=== PATIENT | male | born 1955 | race Caucasian/White ===

== ENCOUNTER 2016-10-01 11:02 | Emergency (ER) | payer BC ==
[~2016-10-01] VITALS: Ht 177.8 cm; Wt 92.3 kg
[~2016-10-01 11:02] MED LIST: AUGM875T28 PO; CLEO150C PO; MULTCAP PO; SIMV10TA2 PO
[2016-10-01] MEDS ORDERED: ATOR80TA59 (11:25)
[2016-10-01] MEDS ORDERED: LISI10TA4 (11:25)
[2016-10-01] MEDS ORDERED: KETOROLAC 30 MG/ML VIAL (J1885) IM ONE (12:00)
--- NOTE | 2016-10-01 12:45 | REP ---
Lumbar spine five views: There are no comparisons. Vertebral body heights, interspacing alignment are normal. There are small osteophytes at multiple levels compatible with mild multilevel degenerative disc disease without disc space narrowing. A few end plate Schmorl's nodes are incidentally noted. There is no spondylolysis or spondylolisthesis. The facet articulations, pedicles and sacroiliac articulations are unremarkable. Impression: Mild multilevel degenerative disc disease. Otherwise, negative lumbar spine. Signed by Robert Shi MD 10/01/2016 12:37 P
[2016-10-01] MEDS ORDERED: PRED20TA PO (13:51)
[2016-10-01] MEDS ORDERED: CYCL10TA PO (13:51)
[2016-10-01] MEDS ORDERED: ULTR50TA8 PO (13:51)
[2016-10-01] MEDS ORDERED: PERCOCET 5MG/325MG TAB PO ONE (14:00)
[2016-10-01 14:54] VITALS: BP 142/71
== END 2016-10-01 15:07 | disposition home or self-care (01) ==
LOC: M ED 11:02
DX: S39.012A Strain of muscle, fascia and tendon of lower back, initial encounter (principal); M51.37 Other intervertebral disc degeneration, lumbosacral region; X58.XXXA Exposure to other specified factors, initial encounter; Y92.9 Unspecified place or not applicable; Y93.9 Activity, unspecified; Y99.9 Unspecified external cause status; I10 Essential (primary) hypertension; F17.200 Nicotine dependence, unspecified, uncomplicated; M51.36 Other intervertebral disc degeneration, lumbar region; Z79.899 Other long term (current) drug therapy
CPT/HCPCS: 72110; 96374; 96375; 99282; J1885; J3360

== ENCOUNTER → 2016-12-14 | Outpatient (CLI) | payer BC ==
[~2016-12-14] MED LIST changes: +ATOR80TA59; +CYCL10TA PO; +LISI10TA4; +PRED20TA PO; +ULTR50TA8 PO
--- NOTE | 2016-12-14 10:19 | REP ---
Noncontrast low-dose lung cancer screening chest CT. History: Nicotine dependence. Comparison chest CT study August 29, 2014. CT findings: There is a calcified granuloma in the right lower lobe peripherally on image 54 of 90 of today's exam. This is unchanged from comparison studies. There is another calcified granuloma in the right lung apex on image number 22. This is also unchanged. No other pulmonary nodular opacity is seen. The study is otherwise unremarkable. Impression: Negative low-dose lung cancer screening chest CT. Old granulomatous calcifications. Signed by Damián El MD 12/14/2016 05:26 P
== END ==
LOC: M RAD 08:13
PROVIDERS: ATTEND Family Medicine
DX: F17.210 Nicotine dependence, cigarettes, uncomplicated (principal)

== ENCOUNTER 2017-08-11 10:28 | Day surgery (SDC) | payer BC ==
[2017-08-11] MEDS: NS 1,000 ML IV (11:02)
[2017-08-11] MEDS ORDERED: PROPOFOL 200 MG/20 ML VIAL As Ordered ×2 (11:38→12:51)
[2017-08-11] MEDS ORDERED: LIDOCAINE 2% INJ 100 MG/5 ML SDV (FOR ANES.) As Ordered (11:38)
== END 2017-08-11 13:42 | disposition home or self-care (01) ==
LOC: M OPP 10:28
DX: Z12.11 Encounter for screening for malignant neoplasm of colon (principal); Z86.010 Personal history of colon polyps; D12.5 Benign neoplasm of sigmoid colon; D12.0 Benign neoplasm of cecum; D12.4 Benign neoplasm of descending colon; D12.7 Benign neoplasm of rectosigmoid junction; K63.89 Other specified diseases of intestine; K21.9 Gastro-esophageal reflux disease without esophagitis; K31.89 Other diseases of stomach and duodenum; K44.9 Diaphragmatic hernia without obstruction or gangrene; I10 Essential (primary) hypertension; E78.5 Hyperlipidemia, unspecified; Z87.442 Personal history of urinary calculi; F17.210 Nicotine dependence, cigarettes, uncomplicated; Z79.899 Other long term (current) drug therapy
CPT/HCPCS: 45385

== ENCOUNTER → 2018-09-11 | Outpatient (CLI) | payer BC ==
[~2018-09-11] MED LIST changes: +ATOR40TA75 PO; -LISI10TA4; +LISI10TA4 PO
[2018-09-11 13:08] LABS: BASO # 0.1 10^3/uL (0.0-0.2); BASO % 0.3 % (0.0-1.0); EOS # 0.2 10^3/uL (0.0-0.50); EOS % 1.2 % (0.0-3.0); HEMATOCRIT 48.1 % (42.0-52.0); HEMOGLOBIN 15.7 g/dl (13.5-17.5); LYMPH # 1.8 10^3/uL (1.5-4.5); LYMPH % 10.1 % (24.0-44.0); MEAN CORPUSCULAR HGB CONC 32.6 g/dl (32.0-36.5); MEAN CORPUSCULAR VOLUME 95.1 fl (80.0-96.0); MONO # 1.1 10^3/uL (0.0-0.8); MONO % 6.4 % (0.0-5.0); NEUTROPHILS # 14.2 10^3/uL (1.8-7.7); NEUTROPHILS % 81.5 % (36.0-66.0); PLATELET COUNT, AUTOMATED 206 10^3/uL (150-450); RED BLOOD COUNT 5.06 10^6/uL (4.30-6.10); WHITE BLOOD COUNT 17.4 10^3/uL (4.0-10.0)
== END ==
LOC: M WUC 10:32
PROVIDERS: ATTEND Physician Assistant
DX: J03.90 Acute tonsillitis, unspecified (principal)

== ENCOUNTER 2019-11-19 10:54 | Emergency (ER) | payer BC, MEDICARE ==
[~2019-11-19] VITALS: Ht 177.8 cm; Wt 93.2 kg
[~2019-11-19 10:54] MED LIST changes: +CYCL-707 PO; -CYCL10TA PO; -SIMV10TA2 PO; +SIMV10TA21 PO
[2019-11-19] MEDS ORDERED: tylenol (11:01)
[2019-11-19] MEDS ORDERED: advil (11:01)
[2019-11-19] MEDS ORDERED: methylPREDNISolone 125MG 2ML VIAL IM ONE (12:15)
[2019-11-19] MEDS ORDERED: LIDOCAINE 5% (LIDODERM) PATCH TD ONE (12:15)
[2019-11-19] MEDS ORDERED: CYCLOBENZAPRINE 10MG TABLET PO ONE (12:15)
[2019-11-19] MEDS ORDERED: CYCL-707 PO (13:09)
[2019-11-19] MEDS ORDERED: LIDO5DIS41 TOP (13:10)
[2019-11-19 13:16] VITALS: BP 159/79
[2019-11-19] MEDS ORDERED: **NOTE PATIENT COMMENT** MISC XX SCH (21:00)
== END 2019-11-19 13:25 | disposition home or self-care (01) ==
LOC: M ED 10:54
DX: G89.29 Other chronic pain (principal); M54.5 Low back pain; I10 Essential (primary) hypertension; F17.210 Nicotine dependence, cigarettes, uncomplicated; Z79.899 Other long term (current) drug therapy
CPT/HCPCS: 96372; 99283; J2930

== ENCOUNTER → 2020-07-31 | Outpatient (CLI) | payer MEDICARE ==
[~2020-07-31] MED LIST changes: +LIDO5DIS41 TOP; +LISI10TA22 PO; -LISI10TA4 PO; +advil; +tylenol
--- NOTE | 2020-07-31 08:40 | REP ---
INDICATION: F17.210 NICOTINE DEPEND COMPARISON: 12/14/2016 TECHNIQUE: Axial noncontrast images from the thoracic inlet to the upper abdomen using low-dose lung screening technique (LDCT). FINDINGS: Lung mares are well aerated and clear. Few small calcified nodules up to 2 mm are again noted and suggest chronic granulomatous disease. No acute consolidation, significant nodule or mass. No effusion. No pneumothorax. Tracheobronchial tree is patent. IMPRESSION: Lung-RADS category 2. Management recommendations include annual low-dose CT surveillance. <Electronically signed by Ian Kwan > 07/31/20 [id number]
== END ==
LOC: M RAD 08:19
PROVIDERS: ATTEND Family Medicine
DX: Z12.2 Encounter for screening for malignant neoplasm of respiratory organs (principal); F17.210 Nicotine dependence, cigarettes, uncomplicated

== ENCOUNTER → 2020-09-11 | Outpatient (REF) | payer MEDICARE | LOC: M LAB REF 12:01 | PROVIDERS: ATTEND Family Medicine | DX: E83.52 Hypercalcemia (principal); R74.8 Abnormal levels of other serum enzymes ==

== ENCOUNTER → 2021-11-30 | Outpatient (CLI) | payer MEDICARE | LOC: M RAD 07:23 | PROVIDERS: ATTEND Family Medicine | DX: Z13.6 Encounter for screening for cardiovascular disorders (principal); F17.200 Nicotine dependence, unspecified, uncomplicated ==

== ENCOUNTER → 2022-03-15 | Outpatient (CLI) | payer MEDICARE | LOC: M RAD 13:48 | PROVIDERS: ATTEND Family Medicine | DX: F17.210 Nicotine dependence, cigarettes, uncomplicated (principal) ==

== ENCOUNTER → 2022-11-03 | Outpatient (REF) | payer MEDICARE ==
[2022-11-03 10:26] LABS: IONIZED CALCIUM 5.7 MG/DL (4.5-5.3)
[2022-11-03 11:19] LABS: PTH INTACT 141.2 PG/ML (18.5-88.0)
== END ==
LOC: M LAB REF 10:15
PROVIDERS: ATTEND Family Medicine
DX: E83.52 Hypercalcemia (principal)

== ENCOUNTER → 2023-06-20 | Outpatient (CLI) | payer MEDICARE | LOC: M RAD 10:18 | PROVIDERS: ATTEND Family Medicine | DX: Z12.2 Encounter for screening for malignant neoplasm of respiratory organs (principal); F17.210 Nicotine dependence, cigarettes, uncomplicated ==

== ENCOUNTER 2023-11-10 06:40 | Day surgery (SDC) | payer MEDICARE ==
[~2023-11-10] VITALS: Ht 177.8 cm; Wt 87.3 kg
[~2023-11-10 06:40] MED LIST changes: +ASPI81TA26 PO; +OMEP1CAP73 PO
[2023-11-10] MEDS ORDERED: SIMETHICONE 40MG/0.6ML DROPS 30ML As Ordered ONE (06:46)
[2023-11-10] MEDS ORDERED: fentaNYL 100 MCG/2 ML INJECTION As Ordered ONE (06:58)
[2023-11-10] MEDS: NS 1,000 ML IV ONE (06:58)
[2023-11-10] MEDS ORDERED: propofoL 200 MG/20 ML VIAL As Ordered ONE (06:59)
[2023-11-10] MEDS ORDERED: LIDOCAINE 2% MDV 20ML VIAL As Ordered ONE (07:02)
[2023-11-10] MEDS ORDERED: propofoL 500 MG/50 ML VIAL As Ordered ONE (07:31)
[2023-11-10 08:07] VITALS: TEMP 97.3
[2023-11-10 08:46] VITALS: BP 163/83; O2SAT 100
== END 2023-11-10 08:50 | disposition home or self-care (01) ==
LOC: M OPP 06:40
PROVIDERS: ATTEND Surgery
DX: Z86.010 Personal history of colon polyps (principal); D12.6 Benign neoplasm of colon, unspecified; K57.30 Diverticulosis of large intestine without perforation or abscess without bleeding; I10 Essential (primary) hypertension; E78.00 Pure hypercholesterolemia, unspecified; R12 Heartburn; F17.210 Nicotine dependence, cigarettes, uncomplicated; Z79.82 Long term (current) use of aspirin; Z79.899 Other long term (current) drug therapy
CPT/HCPCS: 45385; 88305; J3010

== ENCOUNTER → 2024-02-17 | Outpatient (REF) | payer MEDICARE | LOC: M LAB REF 16:34 | PROVIDERS: ATTEND Family Medicine | DX: E83.52 Hypercalcemia (principal) ==

== ENCOUNTER → 2024-06-11 | Outpatient (CLI) | payer MEDICARE | LOC: M CARPUL 10:49 | PROVIDERS: ATTEND Family Medicine | DX: I71.20 Thoracic aortic aneurysm, without rupture, unspecified (principal) ==

== ENCOUNTER → 2024-06-25 | Outpatient (REF) | payer MEDICARE | LOC: M LAB REF 12:15 | PROVIDERS: ATTEND Family Medicine | DX: E83.52 Hypercalcemia (principal) ==

== ENCOUNTER → 2024-10-05 | Outpatient (CLI) | payer MEDICARE ==
[~2024-10-05] MED LIST changes: +LIDO1ADH93 TOP; -LIDO5DIS41 TOP
== END ==
LOC: M RAD 06:53
PROVIDERS: ATTEND Family Medicine
DX: Z12.2 Encounter for screening for malignant neoplasm of respiratory organs (principal); F17.210 Nicotine dependence, cigarettes, uncomplicated; J84.10 Pulmonary fibrosis, unspecified; I25.10 Atherosclerotic heart disease of native coronary artery without angina pectoris; N28.1 Cyst of kidney, acquired; N20.0 Calculus of kidney

== ENCOUNTER → 2024-12-25 | Outpatient (REF) | payer MEDICARE | LOC: M LAB REF 12:55 | PROVIDERS: ATTEND Family Medicine | DX: E83.52 Hypercalcemia (principal) ==

== ENCOUNTER → 2025-02-18 | Outpatient (REF) | payer MEDICARE | LOC: M LAB REF 14:24 | PROVIDERS: ATTEND Family Medicine | DX: E83.52 Hypercalcemia (principal) ==